=== PATIENT | male | born 2000 | race Caucasian/White ===

== ENCOUNTER 2021-11-20 15:44 | Emergency (ER) | payer BC ==
[2021-11-20] MEDS ORDERED: Bacitracin 1 PK ONE (17:26)
== END 2021-11-20 17:23 | disposition home or self-care (01) ==
LOC: CSHERS 15:44
DX: S06.0X1A Concussion with loss of consciousness of 30 minutes or less, initial encounter (principal); W51.XXXA Accidental striking against or bumped into by another person, initial encounter; Y93.66 Activity, soccer
CPT/HCPCS: 70450